=== PATIENT | male | born 1945 | race Caucasian/White ===

== ENCOUNTER → 2019-04-28 | Outpatient (CLI) | payer MEDICARE ==
--- NOTE | 2019-04-28 12:24 | REP ---
REASON: Dyspnea. There are no priors for comparison. There are a few peripheral bibasilar curvilinear densities right greater than left. These are subtle. There are no patchy opacities or pleural effusions. The lung pena are otherwise clear and the heart is not enlarged. The main pulmonary arteries are enlarged. There is no pruning of the vessels. The osseous structures are within normal limits. 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 There is pulmonary arterial enlargement without priors for comparison. Other findings as described above. Electronically Signed by John Hassan DO 04/28/2019 04:12 P
== END ==
LOC: M SMT 11:27
PROVIDERS: ATTEND Internal Medicine Pulmonary Disease
DX: R06.00 Dyspnea, unspecified (principal)